=== PATIENT | female | born 2000 | race Caucasian/White ===

== ENCOUNTER 2018-04-18 01:25 | Emergency (ER) | payer OTHER, SELFPAY ==
[2018-04-18 01:48] VITALS: BP 102/64; PULSE 71; RESP 18; TEMP 36.5; O2SAT 99; BMI 25.9
[2018-04-18] MEDS: PROPARACAINE 0.5% OPHTH SOL 1 DROPS EYE-RIGHT (03:13)
--- NOTE | 2018-04-18 03:20 | ED_ITS ---
HPI - Eye Problem General Chief complaint: Eye Problems Stated complaint: something in right eye Time Seen by Provider: 04/18/18 03:14 Source: patient Mode of arrival: ambulatory Limitations: no limitations History of Present Illness HPI Narrative: Patient states she got some particulate matter in her eye earlier today, and has been bothering her ever since. Patient states she does not wear contacts. It is only her right eye. She is not sure exactly what got in her eye. She denies fevers or recent upper respiratory tract infection. She denies exposure to anybody with ?pinkeye?. Patient states she is otherwise healthy and denies further complaints. She says she has no visual changes. She has had some tearing of the right eye. Related Data Home Medications Medication Instructions Recorded Confirmed albuterol sulfate [Ventolin HFA] #0 11/22/17 Previous Rx's Medication Instructions Recorded ondansetron [Zofran ODT] 4 mg SUBLINGUAL Q6HP PRN #5 odt 11/22/17 ciprofloxacin HCl 2 drop EYE-RIGHT Q4H 7 Days #5 ml 04/18/18 Allergies Allergy/AdvReac Type Severity Reaction Status Date / Time tramadol Allergy Chest Pain Verified 04/18/18 01:52 No Known Allergies Allergy Uncoded 11/17/17 12:51 Review of Systems Review of Systems All systems reviewed & are unremarkable except as noted in HPI and below Constitutional Denies chills, Denies fever(s), Denies lethargy and Denies weakness Eyes Denies change in vision, Denies eye discharge, Reports irritation and Denies loss of vision ENT Ears, Nose, Mouth, and Throat: Denies change in voice, Denies neck pain and Denies sore throat Cardiovascular Denies chest pain, Denies irregular heart rhythm, Denies lightheadedness, Denies palpitations, Denies dyspnea, Denies dyspnea on exertion and Denies orthopnea Respiratory Denies cough, Denies dyspnea, Denies dyspnea on exertion and Denies wheezing Gastrointestinal Gastrointestinal: Denies abdominal pain, Denies change in bowel habits, Denies diarrhea, Denies nausea and Denies vomiting Genitourinary Denies hematuria, Denies flank pain, Denies urinary incontinence and Denies urinary urgency Musculoskeletal Denies neck pain Integumentary/Breasts Denies pruritus, Denies erythema, Denies rash and Denies wounds Neurologic Denies confusion, Denies loss of vision and Denies weakness Psychiatric Denies anxiety, Denies confusion, Denies depression, Denies homicidal ideation and Denies suicidal ideation Endocrine Denies palpitations Hematologic/Lymphatic Denies easy bruising Allergic/Immunologic Denies wheezing [facility] Medical History Neck sprain (Acute) Chest wall pain (Acute) Abdominal pain (Acute) Surgical History No pertinent past surgical history (Acute) Social History Smoking Status: Never smoker Exam Initial Vital Signs Initial Vital Signs: Vital Signs Temperature 97.7 F 04/18/18 01:48 Pulse Rate 71 04/18/18 01:48 Respiratory Rate 18 04/18/18 01:48 Blood Pressure 102/64 04/18/18 01:48 Pulse Oximetry 99 04/18/18 01:48 Const General: cooperative and well developed Nutritional Appearance: well nourished Orientation: alert, awake, oriented x3 and not confused HENVA Head: normal to inspection, normocephalic and atraumatic Eyes General: appearance normal, both eyes and all related structures Periorbital: periorbital findings normal Eyelids: eyelids normal and no eyelid abnormalities (No foreign body underneath the patient's right upper or lower eyelids.) Conjunctivae: conjunctival abnormality (Mild injection) right Sclera: sclerae normal Cornea: corneas abnormal (Corneal abrasion, right eye, semi annular. Follows the edge of the iris laterally.) on the right and fluorescein used Pupils: PERRL EOM: EOM intact bilaterally Direct ophthalmoscopy: normal light reflex Neck Neck: normal visual inspection and full ROM Resp Effort & Inspection: normal respiratory effort and able to speak in complete sentences Back/Spine/Pelvis Back: normal to inspection Skin General: no rashes or lesions noted Neuro General: alert, awake, oriented x3, gait normal and moves all extremities Course Course Narrative: I discussed with patient that there is no longer a foreign body in her eye, but that there was a left over abrasion from this. We have discussed symptomatic management this at home, as well as the need for antibiotic drops. The patient insists that she does not were contacts though the abrasion has the appearance of a contact related lesion. There is no evidence of ulceration. Patient stable for discharge home. Orders Ordered: Discontinued Medications Proparacaine HCl (Parcaine 0.5% Ophth Raiza) 1 drops EYE-RIGHT NOW ONE Stop: 04/18/18 03:12 Last Admin: 04/18/18 03:13 Dose: 1 drop Vital Signs - 8 hr 04/18/18 01:48 Temperature 97.7 F Pulse Rate 71 Respiratory Rate 18 Blood Pressure 102/64 Pulse Oximetry 99 MDM - Eye Problem Medical Records Attestation: I reviewed the patient's medical records. Discharge Plan Departure Patient Disposition: Home Clinical Impression: Corneal abrasion Discharge Date/Time: 04/18/18 04:04 Interventions: ED Discharge Assessment Last Done: 04/18/18 04:03 Instructions: DI for Corneal Abrasion Activity Restrictions/Additional Instructions: Whatever was in your eye has now come out, and was most likely washed out by your tears. However, you do have a scratch that has been left by whatever was in your eye, and because of this, we will start you on preventative antibiotics , as injuries to the surface of the eye do increase the risk of infection. You may take ibuprofen and Tylenol to help with the discomfort in your eye. You should be feeling quite a bit better in the next 1-2 days. Prescriptions: New ciprofloxacin HCl 0.3 % drops 2 drop EYE-RIGHT Q4H 7 Days Qty: 5 RF: 0 No Action albuterol sulfate [Ventolin HFA] 90 MCG/PUFF HFA aerosol inhaler Qty: 0 RF: 0 ondansetron [Zofran ODT] 4 MG tablet,disintegrating 4 mg Sublingual Q6HP PRNQty: 5 RF: 0 Referrals: [facility] [Provider Group] (Please follow-up by the end of the week if your eye is not feeling better.)
== END 2018-04-18 04:04 | disposition home or self-care (01) ==
PROVIDERS: Emergency Provider Emergency Medicine
DX: S05.01XA Injury of conjunctiva and corneal abrasion without foreign body, right eye, initial encounter (principal)
CPT/HCPCS: 99283

== ENCOUNTER 2018-08-04 15:03 | Emergency (ER) | payer OTHER, SELFPAY ==
[2018-08-04 15:24] VITALS: BP 115/76; PULSE 90; RESP 15; TEMP 36.1; O2SAT 98; BMI 27.9
[2018-08-04 15:49] LABS: Influenza A and B by PCR Rapid Negative (Negative)
--- NOTE | 2018-08-04 16:20 | ED.URI ---
HPI - URI/Sore Throat <CRISTHIAN Hummel - Last Filed: 08/04/18 21:52> General Chief Complaint: Upper Respiratory Symptoms Stated Complaint: flu, fever, coughing, chest pains Time Seen by Provider: 08/04/18 16:19 Source: patient Mode of arrival: ambulatory Limitations: no limitations History of Present Illness HPI Narrative: 18-year-old female history of congenital septal defect that is a nonsmoker here for complaint of having fever malaise nasal congestion over the past couple of days. She reports that her has the same symptoms. She reports that yesterday she had a period of chest pain that went away after she went to sleep. Positive p.o. intake. No nausea vomiting. She denies any urinary symptoms. She denies any stressors or relievers of her symptoms. No shortness of breath. Related Data Home Medications Medication Instructions Recorded Confirmed albuterol sulfate [Ventolin HFA] #0 11/22/17 Allergies Allergy/AdvReac Type Severity Reaction Status Date / Time tramadol Allergy Chest Pain Verified 08/04/18 15:24 Review of Systems <CRISTHIAN Hummel - Last Filed: 08/04/18 21:52> Constitutional Reports chills, Denies fatigue, Reports fever(s), Denies lethargy and Denies weakness Eyes Denies change in vision, Denies eye discharge, Denies irritation and Denies loss of vision ENT Ears, Nose, Mouth, and Throat: Reports nasal discharge, Reports sore throat and Denies throat swelling Cardiovascular Reports chest pain Respiratory Reports cough and Denies wheezing Gastrointestinal Gastrointestinal: Denies abdominal pain, Denies change in bowel habits, Denies diarrhea, Denies nausea and Denies vomiting Genitourinary Denies hematuria, Denies flank pain, Denies urinary incontinence and Denies urinary urgency Musculoskeletal Denies back pain, Denies muscle weakness, Denies numbness and Denies tingling Integumentary/Breasts Denies pruritus, Denies erythema, Denies rash and Denies wounds Neurologic Denies confusion, Denies loss of vision, Denies numbness, Denies tingling and Denies weakness Psychiatric Denies anxiety, Denies confusion, Denies depression, Denies homicidal ideation and Denies suicidal ideation Endocrine Denies fatigue and Denies flushing Hematologic/Lymphatic Denies easy bruising Allergic/Immunologic Denies urticaria, Denies throat swelling and Denies wheezing Exam <CRISTHIAN Hummel - Last Filed: 08/04/18 21:52> Initial Vital Signs Initial Vital Signs: Vital Signs Temperature 96.9 F L 08/04/18 15:24 Pulse Rate 90 08/04/18 15:24 Respiratory Rate 15 08/04/18 15:24 Blood Pressure 115/76 08/04/18 15:24 Pulse Oximetry 98 08/04/18 15:24 Const General: cooperative and well developed Nutritional Appearance: well nourished Orientation: alert, awake, oriented x3 and not confused [facility] Mouth: oral mucosae normal, oropharynx normal and moist mucous membranes Eyes Conjunctivae: conjunctivae normal Sclera: sclerae normal Pupils: PERRL EOM: EOM intact bilaterally Neck Neck: normal visual inspection, trachea midline, No lymphadenopathy, No midline deformity and No JVD Lymphatic: No lymphedema Resp Effort & Inspection: normal respiratory effort, able to speak in complete sentences, no respiratory distress and no use of accessory muscles Auscultation: clear to auscultation bilaterally, no rales, no rhonchi and no wheezes Cardio Rate: regular rate Rhythm: regular rhythm Heart Sounds: no click, no gallops, no murmurs and no rubs Pulses: normal peripheral pulses Skin General: no rashes or lesions noted, No jaundice and No petechiae Neuro General: alert, oriented x3, gait normal and no focal motor deficits Speech: speech normal <Renetta Chavez DO - Last Filed: 08/05/18 02:58> Initial Vital Signs Initial Vital Signs: Vital Signs Temperature 96.9 F L 08/04/18 15:24 Pulse Rate 90 08/04/18 15:24 Respiratory Rate 15 08/04/18 15:24 Blood Pressure 115/76 08/04/18 15:24 Pulse Oximetry 98 08/04/18 15:24 Course <CRISTHIAN Hummel - Last Filed: 08/04/18 21:52> Orders Ordered: ED Orders 08/04/18 18:12 Complete Blood Count AUTO DIFF Stat Comprehensive Metabolic Panel Stat Troponin & CK Cardiac Panel Stat Discontinued Medications Sodium Chloride (Normal Saline 0.9%) 1,000 mls @ 150 mls/hr IV CONT NACHO Last Admin: 08/04/18 19:09 Dose: Not Given Vital Signs - 8 hr 12/27/18 15:24 08/04/18 18:48 Temperature 96.9 F L Pulse Rate 90 76 Respiratory Rate 15 18 Blood Pressure 115/76 Blood Pressure [Left Arm] 118/72 Pulse Oximetry 98 99 <Renetta Chavez DO - Last Filed: 08/05/18 02:58> Orders Ordered: ED Orders 08/04/18 18:12 Complete Blood Count AUTO DIFF Stat Comprehensive Metabolic Panel Stat Troponin & CK Cardiac Panel Stat Discontinued Medications Sodium Chloride (Normal Saline 0.9%) 1,000 mls @ 150 mls/hr IV CONT NACHO Last Admin: 08/04/18 19:09 Dose: Not Given Vital Signs - 8 hr 08/04/18 15:24 08/04/18 18:48 Temperature 96.9 F L Pulse Rate 90 76 Respiratory Rate 15 18 Blood Pressure 115/76 Blood Pressure [Left Arm] 118/72 Pulse Oximetry 98 99 MDM - URI/Sore Throat <CRISTHIAN Hummel - Last Filed: 08/04/18 21:52> Lab Data Result diagrams: 08/04/18 18:12 08/04/18 18:12 Lab Results 08/04/18 08/04/18 08/04/18 Range/Units 15:30 18:12 18:12 WBC 11.8 H (4.5-11.0) X10^3/uL RBC 4.94 (4.0-5.2) X10^6/uL Hgb 14.6 (12.0-16.0) g/dL Hct 43.0 (36-46) % MCV 87.0 (80-100) fL MCH 29.6 (26-34) PG MCHC 34.0 (30-36) % RDW 14.0 (11.6-14.8) % Plt Count 287 (150-400) X10^3/uL Neut % (Auto) 55.5 (50-75) % Lymph % (Auto) 32.3 (25-40) % [place] % (Auto) 6.8 (3-14) % Eos % (Auto) 4.7 H (2-4) % Baso % (Auto) 0.7 (0-2) % Neut # (Auto) 6500 (8475-5626) /uL Sodium 141 (137-145) mmol/L Potassium 4.2 (3.4-5.1) mmol/L Chloride 105 (98-107) mmol/L Carbon Dioxide 25 (22-32) mmol/L BUN 12 (7-17) mg/dL Creatinine 0.70 (0.52-1.04) mg/dL Estimated GFR > 60.0 (>60) mL/min BUN/Creatinine Ratio 17.1 (6-22) Glucose 83 (70-100) mg/dL Calcium 9.4 (8.4-10.2) mg/dL Total Bilirubin 0.3 (0.2-1.3) mg/dL AST 33 (14-36) IU/L ALT 28 (9-52) IU/L Alkaline Phosphatase 77 (38-126) U/L Total Creatine Kinase 136 H (30-135) U/L CK-MB (CK-2) 2.27 (<2.37) ng/mL CK-MB (CK-2) Rel Index 1.7 (1.5-5.0) % Troponin I < 0.012 (0.01-0.034) ng/mL Total Protein 7.7 (6.3-8.2) g/dL Albumin 4.7 (3.5-5.0) g/dL Globulin 3.0 (1.7-4.1) g/dL Albumin/Globulin Ratio 1.6 (1.0-2.8) Influenza A & B (PCR) Negative (Negative) Point of Care Testing Test Results Negative Urine Dip Bedside Urine Glucose Negative Bedside Urine Bilirubin - Negative Bedside Urine Ketone - Negative Urine Specific [place] 1.030 Bedside Urine Occult Blood - Negative Bedside Urine pH 6.0 Bedside Urine Protein - Negative Bedside Urine Urobilinogen - Negative Bedside Urine Nitrite - Negative Bedside Urine Leukocytes - Negative Esterase Imaging Data Chest x-ray: Radiologist's impression: [address] [place] [id number] XRay Report Signed Patient: China Sebastian MR#: [id number] : 2000 Acct:[id number] Age/Sex: 18 / F Date of Service: 08/04/18 Loc: ED Accession Number: [id number] Procedure: XR chest 1V Ordering Provider: Uday Pryor PROCEDURE: XR CHEST 1V INDICATIONS: Chest pain TECHNIQUE: One view of the chest was acquired. COMPARISON: [facility], , CHEST 2 VIEW, 10/28/2017, 15:08. FINDINGS: Surgical changes and devices: None. Lungs and pleura: No pleural effusions or pneumothorax. Lungs are clear. Mediastinum: Mediastinal contours appear normal. Heart size is normal. Bones and chest wall: No suspicious bony lesions. Overlying soft tissues appear unremarkable. IMPRESSION: No acute process. Dictated by: Karyn Matos M.D. on 08/04/2018 at 18:01 Approved by: Karyn Matos M.D. on 08/04/2018 at 18:01 ECG Data Interpretation: EKG shows normal sinus rhythm with no ST elevation or depression no ectopy. Ventricular rate of 68. Pr interval of 131. QRS duration 116. QTC of 415. MDM Narrative Medical decision making narrative: Chest x-ray was obtained was negative for any acute findings. Influenza swab was obtained was negative. Chem panel was obtained and was unremarkable. Cardiac enzymes were obtained and were negative. EKG shows normal sinus rhythm with no ST elevation or depression. No ectopy. Signs and symptoms presents as viral upper respiratory infection. Chest pain most likely due to viral illness and cough. [id number] Tylenol or Motrin as needed for any discomfort. Follow up with primary care provider next week. Plenty of fluids and rest Return emergency room for any worsening symptoms. <Renetta Chavez, - Last Filed: 08/05/18 02:58> Lab Data Lab Results 08/04/18 08/04/18 08/04/18 Range/Units 15:30 18:12 18:12 WBC 11.8 H (4.5-11.0) X10^3/uL RBC 4.94 (4.0-5.2) X10^6/uL Hgb 14.6 (12.0-16.0) g/dL Hct 43.0 (36-46) % MCV 87.0 (80-100) fL MCH 29.6 (26-34) PG MCHC 34.0 (30-36) % RDW 14.0 (11.6-14.8) % Plt Count 287 (150-400) X10^3/uL Neut % (Auto) 55.5 (50-75) % Lymph % (Auto) 32.3 (25-40) % [place] % (Auto) 6.8 (3-14) % Eos % (Auto) 4.7 H (2-4) % Baso % (Auto) 0.7 (0-2) % Neut # (Auto) 6500 (3835-9476) /uL Sodium 141 (137-145) mmol/L Potassium 4.2 (3.4-5.1) mmol/L Chloride 105 (98-107) mmol/L Carbon Dioxide 25 (22-32) mmol/L BUN 12 (7-17) mg/dL Creatinine 0.70 (0.52-1.04) mg/dL Estimated GFR > 60.0 (>60) mL/min BUN/Creatinine Ratio 17.1 (6-22) Glucose 83 (70-100) mg/dL Calcium 9.4 (8.4-10.2) mg/dL Total Bilirubin 0.3 (0.2-1.3) mg/dL AST 33 (14-36) IU/L ALT 28 (9-52) IU/L Alkaline Phosphatase 77 (38-126) U/L Total Creatine Kinase 136 H (30-135) U/L CK-MB (CK-2) 2.27 (<2.37) ng/mL CK-MB (CK-2) Rel Index 1.7 (1.5-5.0) % Troponin I < 0.012 (0.01-0.034) ng/mL Total Protein 7.7 (6.3-8.2) g/dL Albumin 4.7 (3.5-5.0) g/dL Globulin 3.0 (1.7-4.1) g/dL Albumin/Globulin Ratio 1.6 (1.0-2.8) Influenza A & B (PCR) Negative (Negative) Point of Care Testing Test Results Negative Urine Dip Bedside Urine Glucose Negative Bedside Urine Bilirubin - Negative Bedside Urine Ketone - Negative Urine Specific [place] 1.030 Bedside Urine Occult Blood - Negative Bedside Urine pH 6.0 Bedside Urine Protein - Negative Bedside Urine Urobilinogen - Negative Bedside Urine Nitrite - Negative Bedside Urine Leukocytes - Negative Esterase Discharge Plan Departure Patient Disposition: Home Clinical Impression: Upper respiratory infection, viral Discharge Date/Time: 08/04/18 19:14 Interventions: ED Discharge Assessment Last Done: 08/04/18 19:13 Instructions: DI for Viral Upper Respiratory Infection -- Adult Activity Restrictions/Additional Instructions: Laboratory results today were unremarkable. Chest x-ray was negative. EKG was normal. Signs and symptoms presents as viral upper respiratory infection. Chest pain most likely due to viral illness and cough. [id number] Tylenol or Motrin as needed for any discomfort. Follow up with primary care provider next week. Plenty of fluids and rest Return emergency room for any worsening symptoms. Prescriptions: No Action albuterol sulfate [Ventolin HFA] 90 MCG/PUFF HFA aerosol inhaler Qty: 0 RF: 0 Referrals: [facility] [Provider Group] Stand Alone Forms: Work Release Note <Renetta Chavez, - Last Filed: 08/05/18 02:58> Cosign ED Attending Cosignature Attestation: I was immediately available in the department for consultation. Documentation has been reviewed. I agree with assessment and plan.
--- NOTE | 2018-08-04 17:32 | DI.RAD.S_ITS ---
PROCEDURE: XR CHEST 1V INDICATIONS: Chest pain TECHNIQUE: One view of the chest was acquired. COMPARISON: [facility], , CHEST 2 VIEW, 10/28/2017, 15:08. FINDINGS: Surgical changes and devices: None. Lungs and pleura: No pleural effusions or pneumothorax. Lungs are clear. Mediastinum: Mediastinal contours appear normal. Heart size is normal. Bones and chest wall: No suspicious bony lesions. Overlying soft tissues appear unremarkable. IMPRESSION: No acute process. Dictated by: Karyn Matos M.D. on 08/04/2018 at 18:01 Approved by: Karyn Matos M.D. on 08/04/2018 at 18:01
--- NOTE | 2018-08-04 18:02 | PC.NURSE ---
Bibianan reports cough, cold and congestion since yesterday. Reports some chest pain/pressure at rest yesterday. Intermittent pressure and racing heart for about one hour. Patient denies chest pain or SOB at this time.
[2018-08-04 18:18] LABS: Add Manual Diff / Slide Review NO; Basophils Percent Auto 0.7 % (0-2); Eosinophils Percent Auto 4.7 % (2-4); Hemoglobin 14.6 g/dL (12.0-16.0); Lymphocytes Percent Auto 32.3 % (25-40); Mean Corpuscular Hemoglobin 29.6 PG (26-34); Monocytes Percent Auto 6.8 % (3-14); Neutrophils Absolute Auto 6500 /uL (1500-7000); Neutrophils Percent Auto 55.5 % (50-75); Platelet Count 287 X10^3/uL (150-400); Red Blood Cell Count 4.94 X10^6/uL (4.0-5.2); White Blood Cell Count 11.8 X10^3/uL (4.5-11.0)
[2018-08-04 18:31] LABS: Alanine Aminotransferase 28 IU/L (9-52); Albumin 4.7 g/dL (3.5-5.0); Albumin Globulin Ratio 1.6 (1.0-2.8); Alkaline Phosphatase 77 U/L (38-126); Aspartate Aminotransferase 33 IU/L (14-36); BUN Creatinine Ratio 17.1 (6-22); Bilirubin Total 0.3 mg/dL (0.2-1.3); Blood Urea Nitrogen 12 mg/dL (7-17); Calcium 9.4 mg/dL (8.4-10.2); Carbon Dioxide 25 mmol/L (22-32); Chloride 105 mmol/L (98-107); Creatine Kinase 136 U/L (30-135); Estimated Glomerular Filt Rate > 60.0 mL/min (>60); Glucose 83 mg/dL (70-100); HEMOLYSIS < 15 (0-50); Potassium 4.2 mmol/L (3.4-5.1); Sodium 141 mmol/L (137-145); Total Protein 7.7 g/dL (6.3-8.2)
--- NOTE | 2018-08-04 18:34 | ED_ITS ---
HPI - URI/Sore Throat <CRISTHIAN Hummel - Last Filed: 08/04/18 21:52> General Chief Complaint: Upper Respiratory Symptoms Stated Complaint: flu, fever, coughing, chest pains Time Seen by Provider: 08/04/18 16:19 Source: patient Mode of arrival: ambulatory Limitations: no limitations History of Present Illness HPI Narrative: 18-year-old female history of congenital septal defect that is a nonsmoker here for complaint of having fever malaise nasal congestion over the past couple of days. She reports that her has the same symptoms. She reports that yesterday she had a period of chest pain that went away after she went to sleep. Positive p.o. intake. No nausea vomiting. She denies any urinary symptoms. She denies any stressors or relievers of her symptoms. No shortness of breath. Related Data Home Medications Medication Instructions Recorded Confirmed albuterol sulfate [Ventolin HFA] #0 11/22/17 Allergies Allergy/AdvReac Type Severity Reaction Status Date / Time tramadol Allergy Chest Pain Verified 08/04/18 15:24 Review of Systems <CRISTHIAN Hummel - Last Filed: 08/04/18 21:52> Constitutional Reports chills, Denies fatigue, Reports fever(s), Denies lethargy and Denies weakness Eyes Denies change in vision, Denies eye discharge, Denies irritation and Denies loss of vision ENT Ears, Nose, Mouth, and Throat: Reports nasal discharge, Reports sore throat and Denies throat swelling Cardiovascular Reports chest pain Respiratory Reports cough and Denies wheezing Gastrointestinal Gastrointestinal: Denies abdominal pain, Denies change in bowel habits, Denies diarrhea, Denies nausea and Denies vomiting Genitourinary Denies hematuria, Denies flank pain, Denies urinary incontinence and Denies urinary urgency Musculoskeletal Denies back pain, Denies muscle weakness, Denies numbness and Denies tingling Integumentary/Breasts Denies pruritus, Denies erythema, Denies rash and Denies wounds Neurologic Denies confusion, Denies loss of vision, Denies numbness, Denies tingling and Denies weakness Psychiatric Denies anxiety, Denies confusion, Denies depression, Denies homicidal ideation and Denies suicidal ideation Endocrine Denies fatigue and Denies flushing Hematologic/Lymphatic Denies easy bruising Allergic/Immunologic Denies urticaria, Denies throat swelling and Denies wheezing Exam <CRISTHIAN Hummel - Last Filed: 08/04/18 21:52> Initial Vital Signs Initial Vital Signs: Vital Signs Temperature 96.9 F L 08/04/18 15:24 Pulse Rate 90 08/04/18 15:24 Respiratory Rate 15 08/04/18 15:24 Blood Pressure 115/76 08/04/18 15:24 Pulse Oximetry 98 08/04/18 15:24 Const General: cooperative and well developed Nutritional Appearance: well nourished Orientation: alert, awake, oriented x3 and not confused [facility] Mouth: oral mucosae normal, oropharynx normal and moist mucous membranes Eyes Conjunctivae: conjunctivae normal Sclera: sclerae normal Pupils: PERRL EOM: EOM intact bilaterally Neck Neck: normal visual inspection, trachea midline, No lymphadenopathy, No midline deformity and No JVD Lymphatic: No lymphedema Resp Effort & Inspection: normal respiratory effort, able to speak in complete sentences, no respiratory distress and no use of accessory muscles Auscultation: clear to auscultation bilaterally, no rales, no rhonchi and no wheezes Cardio Rate: regular rate Rhythm: regular rhythm Heart Sounds: no click, no gallops, no murmurs and no rubs Pulses: normal peripheral pulses Skin General: no rashes or lesions noted, No jaundice and No petechiae Neuro General: alert, oriented x3, gait normal and no focal motor deficits Speech: speech normal <Renetta Chavez DO - Last Filed: 08/05/18 02:58> Initial Vital Signs Initial Vital Signs: Vital Signs Temperature 96.9 F L 08/04/18 15:24 Pulse Rate 90 08/04/18 15:24 Respiratory Rate 15 08/04/18 15:24 Blood Pressure 115/76 08/04/18 15:24 Pulse Oximetry 98 08/04/18 15:24 Course <CRISTHIAN Hummel - Last Filed: 08/04/18 21:52> Orders Ordered: ED Orders 08/04/18 18:12 Complete Blood Count AUTO DIFF Stat Comprehensive Metabolic Panel Stat Troponin & CK Cardiac Panel Stat Discontinued Medications Sodium Chloride (Normal Saline 0.9%) 1,000 mls @ 150 mls/hr IV CONT NACHO Last Admin: 08/04/18 19:09 Dose: Not Given Vital Signs - 8 hr 12/27/18 15:24 08/04/18 18:48 Temperature 96.9 F L Pulse Rate 90 76 Respiratory Rate 15 18 Blood Pressure 115/76 Blood Pressure [Left Arm] 118/72 Pulse Oximetry 98 99 <Renetta Chavez DO - Last Filed: 08/05/18 02:58> Orders Ordered: ED Orders 08/04/18 18:12 Complete Blood Count AUTO DIFF Stat Comprehensive Metabolic Panel Stat Troponin & CK Cardiac Panel Stat Discontinued Medications Sodium Chloride (Normal Saline 0.9%) 1,000 mls @ 150 mls/hr IV CONT NACHO Last Admin: 08/04/18 19:09 Dose: Not Given Vital Signs - 8 hr 08/04/18 15:24 08/04/18 18:48 Temperature 96.9 F L Pulse Rate 90 76 Respiratory Rate 15 18 Blood Pressure 115/76 Blood Pressure [Left Arm] 118/72 Pulse Oximetry 98 99 MDM - URI/Sore Throat <CRISTHIAN Hummel - Last Filed: 08/04/18 21:52> Lab Data Result diagrams: 08/04/18 18:12 08/04/18 18:12 Lab Results 08/04/18 08/04/18 08/04/18 Range/Units 15:30 18:12 18:12 WBC 11.8 H (4.5-11.0) X10^3/uL RBC 4.94 (4.0-5.2) X10^6/uL Hgb 14.6 (12.0-16.0) g/dL Hct 43.0 (36-46) % MCV 87.0 (80-100) fL MCH 29.6 (26-34) PG MCHC 34.0 (30-36) % RDW 14.0 (11.6-14.8) % Plt Count 287 (150-400) X10^3/uL Neut % (Auto) 55.5 (50-75) % Lymph % (Auto) 32.3 (25-40) % Mcdonald % (Auto) 6.8 (3-14) % Eos % (Auto) 4.7 H (2-4) % Baso % (Auto) 0.7 (0-2) % Neut # (Auto) 6500 (7141-5419) /uL Sodium 141 (137-145) mmol/L Potassium 4.2 (3.4-5.1) mmol/L Chloride 105 (98-107) mmol/L Carbon Dioxide 25 (22-32) mmol/L BUN 12 (7-17) mg/dL Creatinine 0.70 (0.52-1.04) mg/dL Estimated GFR > 60.0 (>60) mL/min BUN/Creatinine Ratio 17.1 (6-22) Glucose 83 (70-100) mg/dL Calcium 9.4 (8.4-10.2) mg/dL Total Bilirubin 0.3 (0.2-1.3) mg/dL AST 33 (14-36) IU/L ALT 28 (9-52) IU/L Alkaline Phosphatase 77 (38-126) U/L Total Creatine Kinase 136 H (30-135) U/L CK-MB (CK-2) 2.27 (<2.37) ng/mL CK-MB (CK-2) Rel Index 1.7 (1.5-5.0) % Troponin I < 0.012 (0.01-0.034) ng/mL Total Protein 7.7 (6.3-8.2) g/dL Albumin 4.7 (3.5-5.0) g/dL Globulin 3.0 (1.7-4.1) g/dL Albumin/Globulin Ratio 1.6 (1.0-2.8) Influenza A & B (PCR) Negative (Negative) Point of Care Testing Test Results Negative Urine Dip Bedside Urine Glucose Negative Bedside Urine Bilirubin - Negative Bedside Urine Ketone - Negative Urine Specific [place] 1.030 Bedside Urine Occult Blood - Negative Bedside Urine pH 6.0 Bedside Urine Protein - Negative Bedside Urine Urobilinogen - Negative Bedside Urine Nitrite - Negative Bedside Urine Leukocytes - Negative Esterase Imaging Data Chest x-ray: Radiologist's impression: [address] [place] [id number] XRay Report Signed Patient: China Sebastian MR#: [id number] : 2000 Acct:[id number] Age/Sex: 18 / F Date of Service: 08/04/18 Loc: ED Accession Number: [id number] Procedure: XR chest 1V Ordering Provider: Uday Pryor PROCEDURE: XR CHEST 1V INDICATIONS: Chest pain TECHNIQUE: One view of the chest was acquired. COMPARISON: [facility], , CHEST 2 VIEW, 10/28/2017, 15:08. FINDINGS: Surgical changes and devices: None. Lungs and pleura: No pleural effusions or pneumothorax. Lungs are clear. Mediastinum: Mediastinal contours appear normal. Heart size is normal. Bones and chest wall: No suspicious bony lesions. Overlying soft tissues appear unremarkable. IMPRESSION: No acute process. Dictated by: Karyn Matos M.D. on 08/04/2018 at 18:01 Approved by: Karyn Matos M.D. on 08/04/2018 at 18:01 ECG Data Interpretation: EKG shows normal sinus rhythm with no ST elevation or depression no ectopy. Ventricular rate of 68. Pr interval of 131. QRS duration 116. QTC of 415. MDM Narrative Medical decision making narrative: Chest x-ray was obtained was negative for any acute findings. Influenza swab was obtained was negative. Chem panel was obtained and was unremarkable. Cardiac enzymes were obtained and were negative. EKG shows normal sinus rhythm with no ST elevation or depression. No ectopy. Signs and symptoms presents as viral upper respiratory infection. Chest pain most likely due to viral illness and cough. [id number] Tylenol or Motrin as needed for any discomfort. Follow up with primary care provider next week. Plenty of fluids and rest Return emergency room for any worsening symptoms. <Renetta Chavez, - Last Filed: 08/05/18 02:58> Lab Data Lab Results 08/04/18 08/04/18 08/04/18 Range/Units 15:30 18:12 18:12 WBC 11.8 H (4.5-11.0) X10^3/uL RBC 4.94 (4.0-5.2) X10^6/uL Hgb 14.6 (12.0-16.0) g/dL Hct 43.0 (36-46) % MCV 87.0 (80-100) fL MCH 29.6 (26-34) PG MCHC 34.0 (30-36) % RDW 14.0 (11.6-14.8) % Plt Count 287 (150-400) X10^3/uL Neut % (Auto) 55.5 (50-75) % Lymph % (Auto) 32.3 (25-40) % Mcdonald % (Auto) 6.8 (3-14) % Eos % (Auto) 4.7 H (2-4) % Baso % (Auto) 0.7 (0-2) % Neut # (Auto) 6500 (3448-4291) /uL Sodium 141 (137-145) mmol/L Potassium 4.2 (3.4-5.1) mmol/L Chloride 105 (98-107) mmol/L Carbon Dioxide 25 (22-32) mmol/L BUN 12 (7-17) mg/dL Creatinine 0.70 (0.52-1.04) mg/dL Estimated GFR > 60.0 (>60) mL/min BUN/Creatinine Ratio 17.1 (6-22) Glucose 83 (70-100) mg/dL Calcium 9.4 (8.4-10.2) mg/dL Total Bilirubin 0.3 (0.2-1.3) mg/dL AST 33 (14-36) IU/L ALT 28 (9-52) IU/L Alkaline Phosphatase 77 (38-126) U/L Total Creatine Kinase 136 H (30-135) U/L CK-MB (CK-2) 2.27 (<2.37) ng/mL CK-MB (CK-2) Rel Index 1.7 (1.5-5.0) % Troponin I < 0.012 (0.01-0.034) ng/mL Total Protein 7.7 (6.3-8.2) g/dL Albumin 4.7 (3.5-5.0) g/dL Globulin 3.0 (1.7-4.1) g/dL Albumin/Globulin Ratio 1.6 (1.0-2.8) Influenza A & B (PCR) Negative (Negative) Point of Care Testing Test Results Negative Urine Dip Bedside Urine Glucose Negative Bedside Urine Bilirubin - Negative Bedside Urine Ketone - Negative Urine Specific [place] 1.030 Bedside Urine Occult Blood - Negative Bedside Urine pH 6.0 Bedside Urine Protein - Negative Bedside Urine Urobilinogen - Negative Bedside Urine Nitrite - Negative Bedside Urine Leukocytes - Negative Esterase Discharge Plan Departure Patient Disposition: Home Clinical Impression: Upper respiratory infection, viral Discharge Date/Time: 08/04/18 19:14 Interventions: ED Discharge Assessment Last Done: 08/04/18 19:13 Instructions: DI for Viral Upper Respiratory Infection -- Adult Activity Restrictions/Additional Instructions: Laboratory results today were unremarkable. Chest x-ray was negative. EKG was normal. Signs and symptoms presents as viral upper respiratory infection. Chest pain most likely due to viral illness and cough. [id number] Tylenol or Motrin as needed for any discomfort. Follow up with primary care provider next week. Plenty of fluids and rest Return emergency room for any worsening symptoms. Prescriptions: No Action albuterol sulfate [Ventolin HFA] 90 MCG/PUFF HFA aerosol inhaler Qty: 0 RF: 0 Referrals: [facility] [Provider Group] Stand Alone Forms: Work Release Note <Renetta Chavez, - Last Filed: 08/05/18 02:58> Cosign ED Attending Cosignature Attestation: I was immediately available in the department for consultation. Documentation has been reviewed. I agree with assessment and plan.
[2018-08-04 18:45] LABS: Troponin I < 0.012 ng/mL (0.01-0.034)
[2018-08-04 18:47] LABS: CKMB % Relative Index 1.7 % (1.5-5.0); Creatine Kinase MB 2.27 ng/mL (<2.37)
[2018-08-04 18:48] VITALS: BP 118/72; PULSE 76; RESP 18; O2SAT 99
== END 2018-08-04 19:14 | disposition home or self-care (01) ==
PROVIDERS: Emergency Medicine; Emergency Provider Nurse Practitioner Family
DX: J06.9 Acute upper respiratory infection, unspecified (principal)
CPT/HCPCS: 71045; 80053; 81003; 81025; 82550; 82553; 84484; 85025; 87400; 93005; 99283; 99285